=== PATIENT | female | born 1975 | race American Indian/Alaskan Native ===

== ENCOUNTER 2018-10-23 06:03 | Emergency (ER) | payer OTHER ==
[2018-10-23 06:09] VITALS: BP 178/111
[2018-10-23] MEDS ORDERED: SOLU-Medrol IM ONE (06:51)
[2018-10-23] MEDS ORDERED: TYLENOL PO ONE (06:52)
--- NOTE | 2018-10-23 07:17 | Emergency Department Report ---
Minor Respiratory - HPI Chief Complaint: Sore Throat Stated Complaint: SWOLLEN TONSILS, DIFFICULTY IN BREATHING Time Seen by Provider: 10/23/18 06:59 Duration: 5 Days Pain Location: Throat Severity: moderate Minor Respiratory: Yes Sore Throat, Yes Able to Tolerate Fluids, Yes Cough, Yes Shortness of Breath, Yes Fever, No Rhinorrhea, No Ear Pain, No Sick Contacts, No Hemoptysis, No Chest Pain Other History: URI sx (cough, sore throat) x 5 days. intermittent subjective fever. intermittent SOB with coughing. woke up during night feeling like throat was swollen ED Review of Systems ROS: Stated complaint: SWOLLEN TONSILS, DIFFICULTY IN BREATHING Other details as noted in HPI Comment: All other systems reviewed and negative Constitutional: see HPI ENT: as per HPI Respiratory: see HPI ED Past Medical Hx - Past Medical History Previous Medical History?: No - Surgical History Past Surgical History?: No - Social History Smoking Status: Never Smoker Substance Use Type: Alcohol - Medications Home Medications: Home Medications Medication Instructions Recorded Confirmed Last Taken Type Amoxicillin [Amoxicillin TAB] 875 mg PO BID #20 tablet 10/23/18 Unknown Rx methylPREDNISolone [Medrol] 4 mg PO QAM #1 tab.ds.pk 10/23/18 Unknown Rx Minor Respiratory Exam - Exam General: Vital signs noted. No distress. Alert and acting appropriately. HEENT: Yes Pharyngeal Erythema (uvula midline but mildly edematous), Yes Moist Mucous Membranes, No Pharyngeal Exudates (no tonsillar swelling), No Rhinorrhea, No Conjuctival Injection, No Frontal Tenderness, No Maxillary Tenderness Ear: Neither TM Bulge, Neither TM Erythema, Neither EAC Pain Neck: Yes Supple, No Adenopathy Lungs: Yes Good Air Exchange, No Wheezes, No Ronchi, No Stridor, No Cough, No Labored Respirations, No Retractions, No Use of Accessory Muscles, No Other Abnormal Lung Sounds Heart: Yes Regular, No Murmur Abdomen: No Tenderness, No Peritoneal Signs Skin: No Rash, No Edema Neurologic: Alert and oriented, no deficits. Musculoskeletal: Unremarkable. ED Course Vital Signs 10/23/18 06:06 Temperature 98.8 F Pulse Rate 107 H Respiratory 20 Rate Blood Pressure 178/111 O2 Sat by Pulse 100 Oximetry ED Medical Decision Making - Medical Decision Making pt with uvulitis, no tonsillitis/[employer]CTION [employer]INE [employer], airway patent will treat given solumedrol here also with bronchitis though likely viral cxr neg BP improved 144/81 fu pcp - Differential Diagnosis uvulitis, strep, bronchitis, pna Critical care attestation.: If time is entered above; I have spent that time in minutes in the direct care of this critically ill patient, excluding procedure time. ED Disposition Clinical Impression: Uvulitis Acute bronchitis Qualifiers: Bronchitis organism: unspecified organism Qualified Code(s): J20.9 - Acute bronchitis, unspecified Disposition: - TO HOME OR SELFCARE Is pt being admited?: No Condition: Good Instructions: Acute Bronchitis (ED), Uvulitis (ED) Prescriptions: Amoxicillin [Amoxicillin TAB] 875 mg PO BID #20 tablet methylPREDNISolone [Medrol] 4 mg PO QAM #1 tab.ds.pk Referrals: PASHA GUERRA MD [Primary Care Provider] - 3-5 Days Time of Disposition: 08:50
--- NOTE | 2018-10-23 08:33 | XRay Report ---
EXAM: XR CHEST ROUTINE 2V HISTORY: cough TECHNIQUE: PA and lateral chest x-ray dated 10/23/2018 at 7:33 AM. COMPARISON: None available. FINDINGS: The heart size and mediastinum are within normal limits. The lung ross and costophrenic angles are clear. There is no acute parenchymal infiltrate, pleural effusion, or pneumothorax seen. The visua lized bony structures are within normal limits. IMPRESSION: 1. No evidence for acute cardiopulmonary disease seen. This document is electronically signed by Caleb Peña MD., Oct 23 2018 08:30:54 AM ET
== END 2018-10-23 09:02 | disposition home or self-care (01) ==
LOC: ED 06:03
DX: K12.2 Cellulitis and abscess of mouth (principal); J20.9 Acute bronchitis, unspecified
CPT/HCPCS: 71046; 96372; 99283; J2930